=== PATIENT | male | born 1980 | race Two or more races ===

== ENCOUNTER 2017-11-17 17:31 | Emergency (ER) | payer OTHER ==
[~2017-11-17] VITALS: Ht 193 cm; Wt 98.2 kg
[2017-11-17 18:45] VITALS: BP 128/81
== END 2017-11-17 18:47 | disposition home or self-care (01) ==
LOC: EMS 17:32
DX: J02.8 Acute pharyngitis due to other specified organisms (principal); B97.89 Other viral agents as the cause of diseases classified elsewhere
CPT/HCPCS: 99281